=== PATIENT | female | born 1970 | race Caucasian/White ===

== ENCOUNTER 2025-01-14 13:14 | Outpatient (AMB) | payer BC, SELFPAY ==
--- NOTE | 2025-01-14 13:15 | MHC.PC.OV ---
Vital Signs 01/14/25 13:16 01/14/25 14:02 Height 5 ft 0.63 in Weight 146 lb 2 oz BMI 27.9 BP 140/62 H 118/82 Blood Pressure Location Lt brachial Lt brachial Position Sitting Sitting Pulse 74 Pulse Source Pulse Oximeter Temp 97.1 F Temp Source Temporal Artery Scan Pulse Oximetry (%) 96 Oxygen Delivery Method Room Air Intake Visit Reasons: establish care Intake Note: Patient is a new patient here to establish care for Anxiety. Transferring care from Dr Perez . Medical records have not been requested and have not received. Cash Management Associate Required: No Investor Relations Coordinator: Not Required per policy Accompanied by: Self / Same As Patient Allergies acetaminophen [From Percocet] Allergy (Intermediate, Verified 01/14/25 13:33) Hives oxycodone [From Percocet] Allergy (Intermediate, Verified 01/14/25 13:33) Hives Penicillins Allergy (Intermediate, Verified 01/14/25 13:33) Hives Medication List - Last Reconciled 01/14/25 by Nika Sanders PA-C semaglutide (weight loss) 0.25 mg subcut QWEEK Tobacco use date assessed: 01/14/25 Dental Screening Dental Screen Date: 01/14/25 Did you have a dental visit in the last 12 months?: No Did you have a dental problem in the last 6 months where you did not have access to dental care?: No Was dental information given to patient?: Patient has dentist HPI establish care HPI Details 54 year old female coming to the office for the first time. Patient is not known to [facility]. The patient is a 54-year-old female presenting for wellness and preventive care evaluation. has not been seen in about 10 years and has not had an screening done. Reports vertigo episodes with severe dizziness and nausea, but currently well managed through a flipping maneuver has only had 2 episodes of this spinning sensation last episode was over 3 months ago. Current weight loss managed with semaglutide injections, showing significant results. She recently had blood work performed through her employer A1c of 5.5% than all other blood work within normal limits. 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 1. Little interest or pleasure in doing things: not at all 2. Feeling down, depressed, or hopeless: not at all 3. Trouble falling or staying asleep, or sleeping too much: not at all 4. Feeling tired or having little energy: not at all 5. Poor appetite or overeating: not at all 6. Feeling bad about yourself - or that you are a failure or have let yourself or your family down: not at all 7. Trouble concentrating on things, such as reading the newspaper or watching television: not at all 8. Moving or speaking so slowly that other people could have noticed. Or the opposite - being so fidgety or restless that you have been moving around a lot more than usual: not at all 9. Thoughts that you would be better off or of hurting yourself in some way: not at all Total score: 0 Depression Screening Interpretation: Negative Depression Screening Done: Yes Source: Developed by Drs. Saad Storm, Merary Villalpando, Ruben Curry and colleagues, with an educational ricci from [employer]. Thrive Questionnaire Date Thrive assessed: 01/14/25 I am a: Patient What is your living situation today?: I have a steady place to live Within the past 12 months, did the food you bought not last and you didn't have the money to get more?: Never true Within the past 12 months, did you worry whether your food would run out before you got money to buy more?: Never true Do you have trouble paying for medicines?: No Do you have trouble getting transportation to medical appointments?: No Do you have trouble paying your heating and electricity bill?: No Do you have trouble taking care of your child, family member or friend?: No Do you have trouble with day-to-day activities such as bathing, preparing meals, shopping, managing finances, etc.?: No Are you currently unemployed and looking for a job?: No Are you interested in more education?: No Please select the resources that you would like help with: None Currently or been in a relationship where the following occur: No concerns reported THRIVE Score: 0 AUDIT C Alcohol Use Questionnaire (AUDIT-C) 1. How often do you have a drink containing alcohol?: Never 3. How often do you have six or more drinks on one occasion?: Never Total Score: 0 JAYDEN-7 AMB Questionnaire JAYDEN-7 Date JAYDEN - 7 assessed: 01/14/25 Feeling nervous, anxious, or on edge: 1 = Several days Not being able to stop or control worryin = Not at all Worrying too much about different things: 1 = Several days Trouble relaxin = Several days Being so restless that it is hard to sit still: 1 = Several days Becoming easily annoyed or irritable: 1 = Several days Feeling afraid as if something awful might happen: 0 = Not at all Total JAYDEN-7 score (0-4 normal; 5-9 mild; 10-14 moderate; 15-21 severe): 5 Source: Developed by Drs. Saad Storm, Merary Villalpando, Ruben Curry and colleagues, with an educational ricci from [employer]. JAYDEN-7 Assessment Billing JAYDEN-7 Assessment Tool: JAYDEN-7 Assessment 37754 Review of Systems Const Denies body aches, Denies chills, Denies fever(s), Denies headache(s) and Denies poor appetite Eyes Reports no additional complaints ENT Denies dysphagia, Denies dizziness, Denies headache(s) and Denies odynophagia Card Denies chest pain, Denies syncope, Denies edema, Denies irregular heart rhythm, Denies lightheadedness and Denies dyspnea Resp Denies cough and Denies dyspnea GI Denies abdominal pain, Denies dysphagia, Denies dyspepsia, Denies heartburn, Denies nausea, Denies odynophagia and Denies vomiting Reports no additional complaints Musc Reports no additional complaints and Denies abnormal gait Skin/Breast Reports system reviewed and no additional complaints, except as documented Neuro Denies abnormal gait, Denies dizziness, Denies syncope and Denies headache(s) Psych Reports no additional complaints Physical exam (Primary Care) Vital Signs: Last Vital Signs Temp 97.1 F 01/14/25 13:16 Pulse 74 01/14/25 13:16 BP 118/82 01/14/25 14:02 Pulse Ox 96 01/14/25 13:16 Oxygen Delivery Method Room Air 01/14/25 13:16 BMI result Body Mass Index 27.9 Tobacco/Smoking Status: Tobacco use Status Tobacco use date assessed 01/14/25 01/14/25 13:27 Patient Tobacco Use Status Former Tobacco user 01/14/25 13:27 e-Cigarette/Vaping Use Never Used 01/14/25 13:27 PHQ-9: PHQ-9 Score PHQ-9: Total score 0 01/14/25 13:29 Depression Screening Interpretation: Negative Thrive Assessment: Date of Thrive Assessment Date Thrive assessed 01/14/25 01/14/25 13:27 Currently or been in a relationship where the following occur: No concerns reported Const General: cooperative, healthy appearing, comfortable and no acute distress Orientation/consciousness: patient oriented x3 HENMT Head: Yes normocephalic Ears: hearing grossly normal bilaterally General nose exam: Normal external nose present Eyes General: appearance normal, both eyes and all related structures Conjunctivae: conjunctivae normal Neck Neck: Yes full ROM and Yes no lymphadenopathy Resp Effort & Inspection: normal respiratory effort Auscultation: clear to auscultation bilaterally, no crackles, no rales, no rhonchi and no wheezes Cardio Rate: regular rate Rhythm: regular rhythm Skin General skin exam: no rashes or lesions noted Neuro General: patient oriented x3 Gait exam (Neuro): Normal gait present Extrem General: Yes normal to inspection, Yes full ROM and No edema Psych Affect: normal affect Attitude: cooperative Insight: Good insight present (Psych) Judgement: Good judgement present (Psych) Coding Level of Care Code New Pt Level 4 (37358) Diagnoses Screening for breast cancer Z12.39 Screening for colorectal cancer Z12.11; Z12.12 Anxiety F41.9 Obesity (BMI 30.0-34.9) E66.811 BPPV (benign paroxysmal positional vertigo) H81.10 Screening for hypercholesterolemia Z13.220 Additional Codes JAYDEN-7 Assessment Billing - JAYDEN-7 Assessment Tool: JAYDEN-7 Assessment 28310 ([id number]) Assessment & Plan Assessment & Plan (1) Screening for breast cancer: Code(s): Z12.39 - Encounter for other screening for malignant neoplasm of breast Category: Medical Plan: Referral placed to mammogram today (2) Screening for colorectal cancer: Code(s): Z12.11 - Encounter for screening for malignant neoplasm of colon; Z12.12 - Encounter for screening for malignant neoplasm of rectum Category: Medical Plan: Referral placed for Cologuard box. I explained the different procedures at length with the patient and she decided to go with Cologuard testing. (3) Anxiety: Code(s): F41.9 - Anxiety disorder, unspecified Category: Medical Plan: Jayden 7 screening tool positive today patient denies any feelings of anxiety or depression that needs treatment at this time. (4) Obesity (BMI 30.0-34.9): Code(s): E66.811 - Obesity, class 1 Category: Medical Plan: Continued success in weight control with semaglutide is noted, and physical activity is encouraged to maintain fitness levels. Diet modification is advised to address hyperlipidemia, with emphasis on reducing high-cholesterol foods. (5) BPPV (benign paroxysmal positional vertigo): Code(s): H81.10 - Benign paroxysmal vertigo, unspecified ear Category: Medical Plan: The patient's vertigo episodes can be managed with a recommended medication and maneuvers at home; further intervention such as physical therapy may be considered if episodes increase. (6) Screening for hypercholesterolemia: Code(s): Z13.220 - Encounter for screening for lipoid disorders Category: Medical Plan: Last blood work performed 09/2024 LDL 120, HDL 48, triglycerides 47 Plan Screening for breast, cervical, and colorectal cancers is planned, and follow-up with a cloud subject matter expert is advised. While current blood pressure readings are elevated, they're suspected to be influenced by caffeine, warranting monitoring and potential dietary adjustments. Patient was informed and verbally consented to the use of an ambient scribe for clinic note documentation during this visit. This note was constructed using voice recognition software. While every effort has been made to ensure accuracy and tunnel elastic operator lockstitch, still areas may have been included sometimes these areas may affect the content or meeting of the given symptoms. Total time spent caring for the patient today was thirty minutes. This includes time spent before the visit reviewing the chart, time spent during the visit, and time spent after the visit and documentation. Orders: Orders TSH reflex Free T4 Today Z00.00 - Encounter for general adult medical examination without abnormal findings Vitamin B12 and Folate Today Z00.00 - Encounter for general adult medical examination without abnormal findings Vitamin D 25-OH Total Today Z00.00 - Encounter for general adult medical examination without abnormal findings MM tomosynthesis screening BI Today Z12.31 - Encounter for screening mammogram for malignant neoplasm of breast Referrals Cologuard Test Z12.11 - Encounter for screening for malignant neoplasm of colon, Z12.12 - Encounter for screening for malignant neoplasm of rectum Medications: New meclizine 12.5 mg PO TID PRN 10 tabs 0RF dizziness
[2025-01-14 13:16] VITALS: BP 140/62; PULSE 74; TEMP 36.2; O2SAT 96; BMI 27.9
--- OUTSIDE RECORDS SUMMARY | 2025-01-14 13:33 | XMS_ITS | Clinical Summary ---
Author Organization Formerly [facility] Address [address] [place] [address] Care Team Providers Care Teacher Aide Name Role Phone Pcp, No Primary Care Provider Unavailabl e Social History Tobacco Use Types Packs/Day Years Used Date Smoking Tobacco: Never Assessed Sex and Gender Information Value Date Recorded Sex Assigned at Not on file Gender Identity Not on file Sexual Orientation Not on file Plan of Treatment Health Maintenance Due Date Last Done Comments Hepatitis C Virus Screening 1972 HIV Screening 1985 DTaP/Tdap/Td Vaccines (1 - Tdap) 1991 Hepatitis B Vaccines (1 of 3 - 19+ 3-dose series) 1991 Pap Smear (Ages 21-65) 1993 Mammogram 2012 Colonoscopy 2017 Pneumococcal Vaccines 50+ (1 of 1 - PCV) 2022 Zoster (Shingles) Vaccine (1 of 2) 2022 Influenza Vaccine 06/26/2024 COVID-19 Vaccine (1 - 2023-2 5 season) 2024 Pneumococcal Vaccine: Pediat elizabeth (0-5 Years) and At-Risk Patients (6 to 49 Years) Aged Out No longer eligible b ased on patient's age to complete this topic Care Teams Teacher Aide Relationship Specialty Start Date End Date Pcp, No PCP - General General Medicine 12/14/22
--- OUTSIDE RECORDS SUMMARY | 2025-01-14 13:33 | XMS_ITS | Clinical Summary ---
Author Organization [facility] Address [address] [place] [address] Care Team Providers Care Technical Publications Writer Name Role Phone Michael San MD Primary Care Provider [phone] Surgical History Surgery Date Site/Laterality Comments TUBAL LIGATION 2003 PROCEDURE: HISTORICAL TUBAL LIGATION; COMMENT: laparoscopic, at time of cholescystectomy CHOLECYSTECTOMY 2003 PROCEDURE: NV CHOLECYSTECTOMY; COMMENT: inflamed ROTATOR CUFF REPAIR 07/05 PROCEDURE: HISTORICAL ROTATOR CUFF REPAIR; COMMENT: in [place], [place]; right shoulder OTHER SURGICAL HISTORY 08/23/2011 PROCEDURE: NV DILATION & CURETTAGE DX&/THER NONOBSTETRIC; COMMENT: Hysteroscopy, D&C with thermal balloon endometrial ablation performed by Dr. Hernandez Medical History Medical History Date Comments Kidney infection DX:Kidney infec tion Family History Medical History Relation Name Comments Diabetes Father Hypertension Sister 1 Relation Name Status Comments Daughter Alive Father Alive Maternal Grandfather Maternal Grandmother Mother Alive Paternal Grandfather Paternal Grandmother Sister 1 Sister 2 Alive Sister 3 Alive Sister 4 Alive Son Alive Social History Tobacco Use Types Packs/Day Years Used Date Smoking Tobacco: Every Day Cigarettes Smokeless Tobacco: Never Alcohol Use Standard Drinks/Week Comments Yes 0 (1 standard drink = 0.6 oz pur e alcohol) Comments Unknown Sex and Gender Information Value Date Recorded Sex Assigned at Not on file Legal Sex Female 9:47 AM EST Gender Identity Not on file Sexual Orientation Not on file Obstetrics History Plan of Treatment Health Maintenance Due Date Last Done Comments Breast Cancer Screening 1972 DTaP,Tdap,and Td Vaccines (1 - Tdap) 1991 Hepatitis B Vaccines (1 of 3 - 19+ 3-dose series) 1991 Pneumococcal Vaccine: 50+ Ye ars (1 of 2 - PCV) 1991 Pneumococcal Vaccine: Pediat rics (0 to 5 Years) and At-Risk Patients (6 to 64 Years) (1 of 2 - PCV) 1991 Cervical Cancer Screening: P ap Smear 1993 Zoster Vaccines (1 of 2) 2022 Colorectal Cancer Screening: Colonoscopy 10/29/2022 Depression Screening 10/29/2022 HIV Screening 10/29/2022 Hepatitis C Screening 10/29/2022 Social Influencers of Health Screening 10/29/2022 COVID-19 Vaccine (1 - 2023-2 5 season) 2024 Influenza Vaccine (#1) 2024 HIB Vaccines Aged Out No longer eligi ble based on patient's age to complete this topic HPV Vaccines Aged Out No longer eligi ble based on patient's age to complete this topic Hepatitis A Vaccines Aged Out No long er eligible based on patient's age to complete this topic IPV Vaccines Aged Out No longer eligi ble based on patient's age to complete this topic MMR Vaccines Aged Out No longer eligi ble based on patient's age to complete this topic Meningococcal ACWY Vaccine Aged Out N o longer eligible based on patient's age to complete this topic Meningococcal B Vacine Aged Out No lo nger eligible based on patient's age to complete this topic RSV Immunization Patients Un guillaume 20 months Aged Out No longer eligible b ased on patient's age to complete this topic Varicella Vaccines Aged Out No longer eligible based on patient's age to complete this topic Care Teams Technical Publications Writer Relationship Specialty Start Date End Date Michael San MD [address] [facility] RONALD Munoz PCP - General 02/21/10
--- OUTSIDE RECORDS SUMMARY | 2025-01-14 13:33 | XMS_ITS | Clinical Summary ---
Author Organization Formerly [facility] Address [address] [place] [address] Care Team Providers Care Heating And Cooling Systems Engineer Name Role Phone Unavailable Primary Care Provider Unavailabl e Social History Tobacco Use Types Packs/Day Years Used Date Smoking Tobacco: Never Assessed Sex and Gender Information Value Date Recorded Sex Assigned at Female 08/16/2022 3:48 PM EDT Gender Identity Not on file Sexual Orientation Not on file Job Start Date Occupation Industry Not on file Not on file Not on file Plan of Treatment Health Maintenance Due Date Last Done Comments Hepatitis B Vaccines (1 of 3 - 3-dose series) 1972 Hepatitis C Screening 1972 COVID-19 Vaccine (#1) 1972 Depression Screening 1984 Preventative Health Evaluation 1990 DTap / Tdap / Td (1 - Tdap) 1991 Cervical Cancer Screening (P ap Smear) 1993 Colon Cancer Screening (Colonoscopy) 2017 Breast Cancer Screening (Mammogram) 2022 Shingrix-Zoster Vaccine (1 of 2) 2022 Influenza Vaccine (#1) 2024 Pneumococcal Vaccine Aged Out No long er eligible based on patient's age to complete this topic RSV Ped < 20 months Aged Out No longe r eligible based on patient's age to complete this topic [facility] [employer] Other 05/21/1980 [employer] [address] [place] [address] Luz Jones Personal/Family Self [address] [place] [id number] [employer] Corporate Other 05/21/1980 [employer]BIKA KIMBROUGH [address]
--- OUTSIDE RECORDS SUMMARY | 2025-01-14 13:33 | XMS_ITS | Data Portability ---
Author Organization [facility]ensen [facility], [address] Address [address] [place] [address] Assessment No assessment recorded. Plan of Treatment Reminders Order Date Submit Date Provider Last Modified By Organization Details Last Modified Time Details Appointments None recorded. Lab None recorded. Referral orthopedic surgeon referral - closed fracture right foot 5th metatarsal bone. Need further evaluation and treatment. 2022 023 acardinal 3 [facility], [address], [place], [address], 08:46:14 Procedures None recorded. Surgeries None recorded. Imaging XR, foot, 3 or more view 2022 023 [facility], [address] [place], [address], 09:27:29 Medication Orders ibuprofen 800 mg tablet 2022 023 [facility]/Pharmacy #[id number], [address] [place], [address], 08:43:09 Patient TargetsNo targets recorded. Patient Instructions Encounter Date Encounter Id Patient Instructions Last Modified By Organization Details Last Modified Time 04/23/2023 [id number] foot pain: care instructions [email or web address] Not available 04/23/2023 08:42:55 Overview Foot injuries that cause pain and swelling are fairly common. Almost all sports or home repair projects can cause a misstep that ends up as foot pain. Normal wear and tear, especially as you get older, also can cause foot pain. Most minor foot injuries will heal on their own, and home treatment is usually all you need to do. If you have a severe injury, you may need tests and treatment. Follow-up care is a martinez part of your treatment and safety. Be sure to make and go to all appointments, and call your doctor or nurse advice line (239 in most provinces and territories) if you are having problems. It's also a good idea to know your test results and keep a list of the medicines you take. How can you care for yourself at home? Take pain medicines exactly as directed. If the doctor gave you a prescription medicine for pain, take it as prescribed. If you are not taking a prescription pain medicine, ask your doctor if you can take an oayc-xsb-enukghr medicine. Rest and protect your foot. Take a break from any activity that may cause pain. Put ice or a cold pack on your foot for 10 to 20 minutes at a time. Put a thin cloth between the ice and your skin. Prop up the sore foot on a pillow when you ice it or anytime you sit or lie down during the next 3 days. Try to keep it above the level of your heart. This will help reduce swelling. Your doctor may recommend that you wrap your foot with an elastic bandage. Keep your foot wrapped for as long as your doctor advises. If your doctor recommends crutches, use them as directed. Wear roomy footwear. As soon as pain and swelling end, begin gentle exercises of your foot. Your doctor can tell you which exercises will help. When should you call for help? Call 911 anytime you think you may need emergency care. For example, call if: Your foot turns pale, white, blue, or cold. Call your doctor or nurse advice line now or seek immediate medical care if: You cannot move or stand on your foot. Your foot looks twisted or out of its normal position. Your foot is not stable when you step down. You have signs of infection, such as: Increased pain, swelling, warmth, or redness. Red streaks leading from the sore area. Pus draining from a place on your foot. A fever. Your foot is numb or tingly. Watch closely for changes in your health, and be sure to contact your doctor or nurse advice line if: You do not get better as expected. You have bruises from an injury that last longer than 2 weeks. [email or web address] Not available 04/23/2023 08:29:02 Reason for Referral Orthopedic Surgeon Referral for Closed fracture of fifth metatarsal bone of right foot closed fracture right foot 5th metatarsal bone. Need further evaluation and treatment. closed fracture right foot 5th metatarsal bone. Need further evaluation and treatment. Referring Physician: Rodney Gray, Urgent Care, Encounter Date: 04/23/2023 Results Created Date Observation Date Name Description Value Unit Range Abnormal Flag Note LastModifiedBy Organization Detail LastModifiedTime 04/23/20 23 04/23/2023 XR, foot, 3 or more view No observ ation record ed. [email or web address] [facility] [address] [place], [address], 04/23/2023 10:34:04 Result Notes None recorded. Problems Name Problem SNOMED Code Status Onset Date Resolution Date Notes Provider Name and Address Organization Details Recorded Time Endometri al ablation Completed 202204/23/2023 Removal Reason: was for bad menstrual cramps DEPINTO null, PA - [facility] 08:16:05 Problem Notes None recorded. Procedures Surgical History Date Name Laterality Status Provider Name and Address Organization Details Recorded Time 04/23/20 03 ligation of fallopian tube completed DEPINTO PA - [facility] 04/23/2023 08:14:48 04/23/20 03 cholecystectomy completed DEPINTO PA - [facility] 04/23/2023 08:14:58 Imaging Results Imaging Date Name Status LastModified by Organiz ation Details LastModified Time 04/23/2023 XR, foot, 3 or more view completed [email or web address] [facility] [address] [place], [address], 04/23/2023 10:34:04 Procedure Notes None recorded. Medical Equipment None Reported. Allergies Allergen ID Allergen Name Allergen Category Reaction Reaction Severity Criticality Documentation Date Start Date Code Code System Note Provider Name and Address Organization Details Recorded Time 651728 acetamino phen / oxycodone medicatio n hives Not available Not available 04/23/2023 89040 3 RxNorm DEPINTO null, PA - [facility] 3 08:13:20 136812 Product containin g penicilli n (product) medicatio n hives swelling Not available Not available Not available 04/23/2023 34127 8001 SNOMED Any cilli ns LISA KAPLANJinny gabriela PA - [facility] 3 08:13:37 Medications Name Sig Start Date Stop Date Status Note LastModified by Organization Details LastModified Time ibuprofen 800 mg tablet Take 1 tablet 3 times a day by oral route with meals for 10 days. 023 active Not Available Not Available Not Avai lable Vitals Date Recorded Body height Body mass index (BMI) Body weight Respiratory rate Pain severity - 0-10 verbal numeric rating [Score] - Reported Oxygen saturation Oxygen saturation in Arterial blood by Pulse oximetry Heart rate Body temperature Systolic blood pressure Diastolic blood pressure Provider Name and Address Organization Details Last Updated DateTime 3 152.4 cm 28.5 kg/m2 75460.4 9 g 18 /min 5 98 % 98 % 72 /min 98.2 [degF] 117 mm[Hg] 84 mm[Hg] LISA CHAUDHARI PA - [facility] 3 08:16:56 Social History Question Answer Notes LastModified by Organizat ion Details LastModified Time Tobacco Smoking Status Never Smoker LISA ochoa PA - [facility] 04/23/2023 08:14:12 What Is Your Level Of Alcohol Consumption? None Information not available 04/23/2023 Do You Use Any Illicit Or Recreational Drugs? No Information not available 04/23/2023 Have You Recently Traveled Abroad? No Information not available 04/23/2023 Do You Or Have You Ever Used Any Other Forms Of Tobacco Or Nicotine? No Information not available 04/23/2023 Sex: Unknown Functional Status None recorded. Mental Status None recorded. Family History Relationship Description Onset Age of this Age Resolved Age Notes LastModified by Organization Details LastModified Time Father Diabetes mellitus Not available 2022 08:14:22 Sister Diabetes mellitus Not available 2022 08:14:22 Medical History No medical history recorded. Gynecological History Statement/Question Response Date of LMP Is there any chance of ? No LMP Definite Obstetrics History GPAL:G 0 P 0 0 0 0 Past Encounters Encounter ID Performer Location Encounter Start Date Encounter Closed Date Diagnosis/Indication Diagnosis SNOMED-CT Code Diagnosis ICD10 Code Diagnosis Note [id number] [place] [address] [place] [address] 04/23/2023 08:05:29 04/23/2023 08:46:14 Pain in right foot [id number] 79455 M79.671 Closed fra cture of fifth metatarsal bone of right foot [id number] 9178599 S92.351A Health Concerns Section Related Observation LastModified by Organization Detai ls LastModified Time None Recorded Concern Status LastModified by Organization Details LastModified Time None Recorded Advance Directives Directive None Recorded Payers Encounter Date Sequence Insurance Name Policy Number Policy Dotson Covered Member ID Dotson Member ID Guarantor Name 04/23/2023 1 [facility] [id number] Luz Crowe [id number] Luz Crowe Notes Date Note Type Note Provider Name and Address Organization Details Recorded Time 3 text/html Foot/Ankle UCReported bypatient.source of patient informationInformation obtained from patient; Patient arrived at Urgent Care ambulatory; learning styles: auditory Location:right; foot Probleminjury; swelling Severity:moderate Duration:1 days Context:fall Associated Symptoms:no weakness; no numbness; no tingling;swelling;redness;w armth;ecchymosis Aggravating factors:going from sit to stand; standing; walking; upstairs Alleviating factors:elevation; limited weight bearing; rest Previous InjuryNo prior injury to affected body part Previous Treatmentnone Prior Imaging:none Rodney Gray NP [address] [place], [address], [place] - [facility] 04/23/2023 08:43:57 OBGyn Episode No OBEpisode recorded.
[2025-01-14 14:02] VITALS: BP 118/82
== END 2025-01-14 14:06 | disposition home or self-care (01) ==
DX: F41.9 Anxiety disorder, unspecified (principal); Z68.27 Body mass index [BMI] 27.0-27.9, adult; E66.811 Obesity, class 1; Z12.39 Encounter for other screening for malignant neoplasm of breast; H81.10 Benign paroxysmal vertigo, unspecified ear; Z12.11 Encounter for screening for malignant neoplasm of colon; Z12.12 Encounter for screening for malignant neoplasm of rectum; Z13.220 Encounter for screening for lipoid disorders

== ENCOUNTER 2025-01-14 13:14 | Outpatient (REF) | payer BC, SELFPAY ==
--- OUTSIDE RECORDS SUMMARY | 2025-01-14 14:21 | XMS_ITS | Clinical Summary ---
Author Organization [facility] Address [address] [place] [address] Care Team Providers Care Cub Reporter Name Role Phone Michael San MD Primary Care Provider [phone] Surgical History Surgery Date Site/Laterality Comments TUBAL LIGATION 2003 PROCEDURE: HISTORICAL TUBAL LIGATION; COMMENT: laparoscopic, at time of cholescystectomy CHOLECYSTECTOMY 2003 PROCEDURE: [place] CHOLECYSTECTOMY; COMMENT: inflamed ROTATOR CUFF REPAIR 07/05 PROCEDURE: HISTORICAL ROTATOR CUFF REPAIR; COMMENT: in [place], [place]; right shoulder OTHER SURGICAL HISTORY 08/23/2011 PROCEDURE: [place] DILATION & CURETTAGE DX&/THER NONOBSTETRIC; COMMENT: Hysteroscopy, [...] age to complete this topic Care Teams Cub Reporter Relationship Specialty Start Date End Date Michael San MD [address] [facility] RONALD Munoz PCP - General 02/21/10
--- OUTSIDE RECORDS SUMMARY | 2025-01-14 14:21 | XMS_ITS | Clinical Summary ---
Author Organization [facility] Address [address] [place] [address] Care Team Providers Care Cold Working Inspector Name Role Phone Unavailable Primary Care Provider [...] to complete this topic [facility] Corporate Other 05/21/1980 ATNapoleon KIMBROUGH [address] [place] [address] Luz Jones Personal/Family Self [address] [place] [id number] [facility] Corporate Other 05/21/1980 AMBIKA KIMBROUGH [address]
--- OUTSIDE RECORDS SUMMARY | 2025-01-14 14:21 | XMS_ITS | Clinical Summary ---
Author Organization [facility] Address [address] [place] [address] Care Team Providers Care Medicaid Collection Specialist Name Role Phone Pcp, No Primary Care [...] age to complete this topic Care Teams Medicaid Collection Specialist Relationship Specialty Start Date End Date Pcp, No PCP - General General Medicine 12/14/22
[2025-01-14 16:09] LABS: TSH reflex Free T4 0.98 uIU/mL (0.32-4.0); Vitamin D 25-OH Total 25.7 ng/mL (>30)
[2025-01-14 16:25] LABS: Folate 11.2 ng/mL (> or = 4.0); Vitamin B12 497 pg/mL (200-900)
== END 2025-01-14 13:15 | disposition home or self-care (01) ==
LOC: HO.LAB 13:14
DX: Z00.00 Encounter for general adult medical examination without abnormal findings (principal); F41.9 Anxiety disorder, unspecified; E66.811 Obesity, class 1; Z68.27 Body mass index [BMI] 27.0-27.9, adult; H81.10 Benign paroxysmal vertigo, unspecified ear
CPT/HCPCS: 36415; 82306; 82607; 82746; 84443; 96127

== ENCOUNTER 2025-02-26 14:28 | Outpatient (REF) | payer BC, SELFPAY ==
--- OUTSIDE RECORDS SUMMARY | 2025-02-26 15:58 | XMS_ITS | Clinical Summary ---
Author Organization [facility] Address [address] [place] [address] Care Team Providers Care Roll Former Name Role Phone Pcp, No Primary Care [...] age to complete this topic Care Teams Roll Former Relationship Specialty Start Date End Date Pcp, No PCP - General General Medicine 12/14/22
--- OUTSIDE RECORDS SUMMARY | 2025-02-26 15:58 | XMS_ITS | Data Portability ---
Author Organization [facility]A Christensen [facility], [address] Address [address] [place] [address] Assessment No assessment recorded. Plan of Treatment Reminders Order Date Submit Date Provider Last Modified By Organization Details Last Modified Time Details Appointments None recorded. Lab None recorded. Referral orthopedic surgeon referral - closed fracture right foot 5th metatarsal bone. Need further evaluation and treatment. 2022 023 acardinal 3 [facility], [address], [place], [address], 08:46:14 Procedures None recorded. Surgeries None recorded. Imaging XR, foot, 3 or more view 2022 023 [facility], [address] [place], [address], 09:27:29 Medication Orders ibuprofen 800 mg tablet 2022 023 [facility]/Ph[facility]acy #[id number], [address] [place], [address], 08:43:09 Patient TargetsNo targets recorded. Patient Instructions Encounter Date Encounter Id Patient Instructions Last Modified By Organization Details Last Modified Time 04/23/2023 [id number] foot pain: care instructions [email or web address] Not available [...] call your doctor or nurse advice line (639 in most provinces and territories) if you [...] your doctor if you can take an tfai-fsy-tkgxhbv medicine. Rest and protect your foot. Take [...] ed. [email or web address] [facility] [address] [place], [address], 04/23/2023 10:34:04 Result Notes None recorded. Problems [...] completed [email or web address] [facility] [address] [place], [address], 04/23/2023 10:34:04 Procedure Notes None recorded. Medical Equipment None Reported. Allergies Allergen ID Allergen Name Allergen Category Reaction Reaction Severity Criticality Documentation Date Start Date Code Code System Note Provider Name and Address Organization Details Recorded Time 836982 acetamino phen / oxycodone medicatio n hives Not available Not available 04/23/2023 34043 3 RxNorm DEPINTO null, PA - [facility] 3 08:13:20 411094 Product containin g penicilli n (product) medicatio n hives swelling Not available Not available Not available 04/23/2023 07880 8001 SNOMED Any cilli ns LISA KAPLANJinny [...] Updated DateTime 3 152.4 cm 28.5 kg/m2 43184.4 9 g 18 /min 5 98 % [...] SNOMED-CT Code Diagnosis ICD10 Code Diagnosis Note [id number] [place] [address] [place] [address] 04/23/2023 08:05:29 04/23/2023 08:46:14 Pain in right foot [id number] 20400 M79.671 Closed fra cture of fifth metatarsal bone of right foot [id number] 6496010 S92.351A Health Concerns Section Related Observation LastModified by Organization Detai ls LastModified Time None Recorded Concern Status LastModified by Organization Details LastModified Time None Recorded Advance Directives Directive None Recorded Payers Encounter Date Sequence Insurance Name Policy Number Policy Dotson Covered Member ID Dotson Member ID Guarantor Name 04/23/2023 1 [facility] [id number] Luz Crowe [id number] Luz Crowe Notes Date Note Type [...] Gray NP [address] [place], [address], [place] - [facility] 04/23/2023 08:43:57 OBGyn Episode No OBEpisode recorded.
--- OUTSIDE RECORDS SUMMARY | 2025-02-26 15:58 | XMS_ITS | Clinical Summary ---
Author Organization [facility] Address [address] [place] [address] Care Team Providers Care Nursery Manager Name Role Phone Unavailable Primary Care Provider [...] to complete this topic [facility] Corporate Other 05/21/1980 ATNapoleon KIMBROUGH [address] [place] [address] Luz Jones Personal/Family Self [address] [place] [phone] [facility] Corporate Other 05/21/1980 AMBIKA KIMBROUGH [address]
--- OUTSIDE RECORDS SUMMARY | 2025-02-26 15:58 | XMS_ITS ---
Author Name [facility] Organization Unknown Care Team Organization Name Specialty Phone Email Start Date End Da [facility] NO PCP Primary Care 12/18/2022 12/18/2022
--- OUTSIDE RECORDS SUMMARY | 2025-02-26 15:58 | XMS_ITS | Clinical Summary ---
Author Organization [facility] Address [address] [place] [address] Care Team Providers Care Carpenter Assistant Installer Name Role Phone Michael San MD Primary Care Provider [phone] Surgical History Surgery Date Site/Laterality Comments TUBAL LIGATION 2003 PROCEDURE: HISTORICAL TUBAL LIGATION; COMMENT: laparoscopic, at time of cholescystectomy CHOLECYSTECTOMY 2003 PROCEDURE: [place] CHOLECYSTECTOMY; COMMENT: inflamed ROTATOR CUFF REPAIR 07/05 PROCEDURE: HISTORICAL ROTATOR CUFF REPAIR; COMMENT: in [place], [place]; right shoulder OTHER SURGICAL HISTORY 08/23/2011 PROCEDURE: [place] DILATION & CURETTAGE DX&/THER NONOBSTETRIC; COMMENT: Hysteroscopy, [...] age to complete this topic Care Teams Carpenter Assistant Installer Relationship Specialty Start Date End Date Michael San MD [address] [facility] RONALD Munoz PCP - General 02/21/10
== END 2025-02-26 14:29 | disposition home or self-care (01) ==
LOC: HO.MAMMO 14:28
DX: Z12.31 Encounter for screening mammogram for malignant neoplasm of breast (principal)
CPT/HCPCS: 77063; 77067

== ENCOUNTER → 2025-02-26 14:30 | Outpatient (BNV) | payer BC, SELFPAY | PROVIDERS: Visit Provider Internal Medicine | DX: Z12.31 Encounter for screening mammogram for malignant neoplasm of breast (principal) | CPT/HCPCS: 77063; 77067 ==

== ENCOUNTER 2025-04-08 13:55 | Outpatient (REF) | payer BC, SELFPAY ==
--- NOTE | ~2025-04-08 | MM_ITS ---
EXAMINATION: MM DIAGNOSTIC DIGITAL BREAST TOMOSYNTHESIS, BILATERAL Bilateral Limited ultrasound. CLINICAL INFORMATION: Call back from screening for bilateral asymmetries. COMPARISON: Mammography: Comparison is made with relevant prior exams. TECHNIQUE: Digital breast mammography with tomosynthesis is performed in both the craniocaudal and mediolateral oblique views along with computer-aided detection (CAD). FINDINGS: There are scattered areas of fibroglandular density (ACR BI-RADS breast composition Category b). Right: There is a normal-appearing intramammary lymph node in the upper outer breast otherwise no suspicious masses calcifications or other abnormal findings. Targeted color Doppler ultrasound scanning in the upper outer quadrant of the right breast demonstrates normal fibronodular breast tissue. There is no sonographic abnormality. Left: Circumscribed oval mass in the lateral left breast anterior depth on CC view persists on additional imaging projections. No suspicious calcifications or other abnormal findings. Targeted color Doppler ultrasound demonstrates a simple to minimally complicated cyst at 1:00 2 cm from the nipple measuring 6 x 4 x 5 mm which correlates with the oval mass on mammography. There is a simple to minimally complicated cyst at 2:00 2 cm from nipple measuring 5 x 5 x 4 mm. There is no sonographic abnormality. Results are provided to the patient at time of visit by the technologist. MM/MM tomosynthesis added view BI IMPRESSION: Right: Benign. Left: Simple to minimally complicated cysts on ultrasound. Benign. ASSESSMENT: BI-RADS BI-RADS 2 - Benign Findings RECOMMENDATION: 1 year F/U This patient's information was entered into a reminder system with a target due date for their next mammogram. Electronically signed by: Verna Joiner DO 04/09/2025 08:36 AM EDT
--- OUTSIDE RECORDS SUMMARY | 2025-04-08 13:57 | XMS_ITS | Clinical Summary ---
Author Organization [facility] Address [address] [place] [address] Care Team Providers Care Casing Blower Name Role Phone Unavailable Primary Care Provider [...] to complete this topic [facility] Corporate Other 05/21/1980 ATNapoleon KIMBROUGH [address] [place] [address] Luz Jones Personal/Family Self [address] [place] [phone] [facility] Corporate Other 05/21/1980 AMBIKA KIMBROUGH [address]
--- OUTSIDE RECORDS SUMMARY | 2025-04-08 13:57 | XMS_ITS | Clinical Summary ---
Author Organization [facility] Address [address] [place] [address] Care Team Providers Care Sheet Heater Name Role Phone Pcp, No Primary Care Provider Unavailabl e Social History Tobacco Use Types Packs/Day Years Used Date Smoking Tobacco: Never Assessed Comments Unknown Sex and Gender Information Value Date Recorded Sex Assigned at Not on file Legal Sex Female 10:32 AM EST Gender Identity Not on file Sexual Orientation Not on file Plan of Treatment Health Maintenance Due Date Last Done Comments Hepatitis C Virus Screening 1970 HIV Screening 1985 DTaP/Tdap/Td Vaccines (1 - Tdap) 1991 Hepatitis B Vaccines (1 of 3 - 19+ 3-dose series) 04/1991 Pap Smear (Ages 21-65) 1993 Mammogram 2012 Colonoscopy 2017 Pneumococcal Vaccines 50+ (1 of 1 - PCV) 2022 Zoster (Shingles) Vaccine (1 of 2) 2022 COVID-19 Vaccine (1 - 2023-25 season) 2024 Influenza Vaccine 06/26/2025 Insurance BLUE CROSS OUT OF STATE - PPO [facility] [employer] Care Teams Sheet Heater Relationship Specialty Start Date End Date Pcp, No PCP - General General Medicine 12/14/22
--- OUTSIDE RECORDS SUMMARY | 2025-04-08 13:57 | XMS_ITS | Data Portability ---
Author Organization [facility] Christensen [facility], [address] Address [address] [place] [address] Assessment No assessment recorded. Plan of Treatment Reminders Order Date Submit Date Provider Last Modified By Organization Details Last Modified Time Details Appointments None recorded. Lab None recorded. Referral orthopedic surgeon referral - closed fracture right foot 5th metatarsal bone. Need further evaluation and treatment. 2022 023 acardinal 3 [facility], [address], [place], [address], 08:46:14 Procedures None recorded. Surgeries None recorded. Imaging XR, foot, 3 or more view 2022 023 [facility], [address] [place], [address], 09:27:29 Medication Orders ibuprofen 800 mg tablet 2022 023 [facility]/Ph[facility]acy #[id number], [address] [place], [address], 08:43:09 Patient TargetsNo targets recorded. Patient Instructions Encounter Date Encounter Id Patient Instructions Last Modified By Organization Details Last Modified Time 04/23/2023 [id number] foot pain: care instructions [email or web address] Not available [...] call your doctor or nurse advice line (429 in most provinces and territories) if you [...] your doctor if you can take an eqor-okv-isfnxfv medicine. Rest and protect your foot. Take [...] ed. [email or web address] [facility] [address] [place], [address], 04/23/2023 10:34:04 Result Notes None recorded. Problems [...] completed [email or web address] [facility] [address] [place], [address], 04/23/2023 10:34:04 Procedure Notes None recorded. Medical Equipment None Reported. Allergies Allergen ID Allergen Name Allergen Category Reaction Reaction Severity Criticality Documentation Date Start Date Code Code System Note Provider Name and Address Organization Details Recorded Time 080983 acetamino phen / oxycodone medicatio n hives Not available Not available 04/23/2023 92186 3 RxNorm DEPINTO null, PA - [facility] 3 08:13:20 322025 Product containin g penicilli n (product) medicatio n hives swelling Not available Not available Not available 04/23/2023 36624 8001 SNOMED Any cilli ns LISA KAPLANJinny [...] Updated DateTime 3 152.4 cm 28.5 kg/m2 18146.4 9 g 18 /min 5 98 % 98 % 72 /min 98.2 [degF] 117 mm[Hg] 84 mm[Hg] LISA CHAUDHARI PA - [facility] 3 08:16:56 Social History Question Answer Notes LastModified by Archevos Details LastModified Time Tobacco Smoking Status Never Smoker LISA ochoa PA - [facility] 04/23/2023 08:14:12 Have You Recently Traveled Abroad? No Information not available 04/23/2023 Sex: Unknown Functional Status Question Answer Note LastModified by Archevos Details LastModified Time Do you use any illicit or recreational drugs? No Information not available 04/23/2023 Do you or have you ever used any other forms of tobacco or nicotine? No Information not available 04/23/2023 What is your level of alcohol consumption? None Information not available 04/23/2023 Mental Status None recorded. Family History Relationship [...] SNOMED-CT Code Diagnosis ICD10 Code Diagnosis Note [id number] [place] [address] [place] [address] 04/23/2023 08:05:29 04/23/2023 08:46:14 Pain in right foot [id number] 93904 M79.671 Closed fra cture of fifth metatarsal bone of right foot [id number] 1551729 S92.351A Health Concerns Section Related Observation LastModified by Organization Detai ls LastModified Time None Recorded Concern Status LastModified by Organization Details LastModified Time None Recorded Advance Directives Directive None Recorded Payers Insurance Date Sequence Insurance Name Policy Number Policy Dotson Covered Member ID Dotson Member ID Guarantor Name 05/24/2023 1 [facility] [id number] Luz Crowe [id number] Luz Crowe 05/03/2023 1 [facility] [id number] Luz Crowe [id number] Luz Crowe Notes Date Note Type [...] Gray NP [address] [place], [address], [place] - [facility] 04/23/2023 08:43:57 OBGyn Episode No OBEpisode recorded.
== END 2025-04-08 13:56 | disposition home or self-care (01) ==
LOC: HO.MAMMO 13:55
DX: N64.89 Other specified disorders of breast (principal)
CPT/HCPCS: 76642; 77062; 77066

== ENCOUNTER → 2025-04-08 14:00 | Outpatient (BNV) | payer BC, SELFPAY | PROVIDERS: Visit Provider Internal Medicine | DX: N60.02 Solitary cyst of left breast (principal) | CPT/HCPCS: 76642; 77062; 77066 ==

== ENCOUNTER 2025-04-13 14:09 | Outpatient (AMB) | payer BC, SELFPAY ==
--- NOTE | 2025-04-13 14:15 | A.OFFPC_ITS ---
Vital Signs 04/13/25 14:16 Height 5 ft 0.63 in Weight 132 lb 6 oz BMI 25.3 BP 130/60 Blood Pressure Location Lt brachial Position Sitting Pulse 75 Pulse Source Pulse Oximeter Temp 97.3 F Temp Source Temporal Artery Scan Pulse Oximetry (%) 97 Oxygen Delivery Method Room Air Intake Visit Reasons: Annual Exam Intake Note: Patient is here today for a physical. Neon Sign Servicer Required: No Job Press Feeder: Not Required per policy Accompanied by: Self / Same As Patient Allergies acetaminophen [From Percocet] Allergy (Intermediate, Verified 04/13/25 14:20) Hives oxycodone [From Percocet] Allergy (Intermediate, Verified 04/13/25 14:20) Hives Penicillins Allergy (Intermediate, Verified 04/13/25 14:20) Hives Medication List - Last Reconciled 04/13/25 by Nika Sanders PA-C cholecalciferol (vitamin D3) 25 mcg PO DAILY meclizine 12.5 mg PO TID PRN semaglutide 0.75 mg subcut semaglutide (weight loss) 0.25 mg subcut QWEEK Tobacco use date assessed: 04/13/25 Dental Screening Dental Screen Date: 01/14/25 HPI Annual Exam HPI Details 54-year-old female with past medical his tory of obesity and anxiety last seen 12/2024 coming in for annual exam. Patient mentions a 26 lb weight loss since starting her Ozempic. She feels good on this medication and feels her overall mood and health has improved. She does express concerns about stress incontinence and has urine leakage with laughing, coughing, sneezing. 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 Cognitive needs: No Hearing needs: No Vision needs: Yes (Glasses) Questionnaire Thrive Questionnaire Date Thrive assessed: 01/12/25 I am a: Patient What is your living situation today?: I have a steady place to live Within the past 12 months, did the food you bought not last and you didn't have the money to get more?: Never true Within the past 12 months, did you worry whether your food would run out before you got money to buy more?: Never true Do you have trouble paying for medicines?: No Do you have trouble getting transportation to medical appointments?: No Do you have trouble paying your heating and electricity bill?: No Do you have trouble taking care of your child, family member or friend?: No Do you have trouble with day-to-day activities such as bathing, preparing meals, shopping, managing finances, etc.?: No Are you currently unemployed and looking for a job?: No Are you interested in more education?: No Please select the resources that you would like help with: None Currently or been in a relationship where the following occur: No concerns reported THRIVE Score: 0 JAYDEN-7 AMB Questionnaire JAYDEN-7 Date JAYDEN - 7 assessed: 01/14/25 Source: Developed by Drs. Saad Storm, Merary Villalpando, Ruben Curry and colleagues, with an educational ricci from [employer]. Review of Systems Const Denies body aches, Denies fatigue, Denies fever(s), Denies frequent falls, Denies headache(s) and Denies weakness Eyes Reports no additional complaints and Denies change in vision ENT Denies dizziness, Denies facial pain and Denies headache(s) Card Denies chest pain, Denies syncope, Denies irregular heart rhythm, Denies leg edema, Denies lightheadedness and Denies dyspnea Resp Denies cough and Denies dyspnea GI Denies abdominal pain, Denies constipation, Denies dyspepsia, Denies diarrhea, Denies nausea and Denies vomiting Details: urinary leakage consistent with stress incontinence Denies urinary frequency, Denies dysuria, Denies urinary hesitancy and Denies urinary urgency Musc Denies back pain and Denies myalgias Skin/Breast Reports system reviewed and no additional complaints, except as documented Neuro Denies dizziness, Denies syncope, Denies frequent falls, Denies headache(s) and Denies weakness Psych Reports no additional complaints Endo Denies fatigue Physical exam (Primary Care) Vital Signs: Last Vital Signs Temp 97.3 F 04/13/25 14:16 Pulse 75 04/13/25 14:16 BP 130/60 04/13/25 14:16 Pulse Ox 97 04/13/25 14:16 Oxygen Delivery Method Room Air 04/13/25 14:16 BMI result Body Mass Index 25.3 Tobacco/Smoking Status: Tobacco use Status Tobacco use date assessed 04/13/25 04/13/25 14:19 Patient Tobacco Use Status Former Tobacco user 04/13/25 14:19 e-Cigarette/Vaping Use Never Used 04/13/25 14:19 Thrive Assessment: Date of Thrive Assessment Date Thrive assessed 01/12/25 04/13/25 14:19 Currently or been in a relationship where the following occur: No concerns reported Const General: cooperative, healthy appearing, comfortable and no acute distress Orientation/consciousness: patient oriented x3 HENMT Head: Yes normocephalic Ears: hearing grossly normal bilaterally, external ears normal, TM's normal bilaterally and EAC's normal General nose exam: Normal external nose present Face and sinus: Yes normal facial exam and Yes sinuses nontender Mouth: Normal oral and palatal mucosa present and tongue normal Throat: Yes posterior oropharynx normal Eyes General: appearance normal, both eyes and all related structures Conjunctivae: conjunctivae normal Pupils: Equal, round and reactive pupils present EOM: EOMs intact bilaterally and No Nystagmus present Neck Neck: Yes normal visual inspection, Yes full ROM and Yes no lymphadenopathy Chest Chest palpation & inspection: normal inspection of the chest Resp Effort & Inspection: normal respiratory effort Auscultation: clear to auscultation bilaterally, no crackles, no rales, no rhonchi, no wheezes and breath sounds present Cardio Rate: regular rate Rhythm: regular rhythm Peripheral pulses: radial pulses present and dorsalis pedis present GI Inspection: Yes normal to inspection and No Abdominal wall edema Palpation (GI): Soft to palpation, not firm and nontender Auscultation: normal bowel sounds Rectal Exam - Female: deferred General: Yes no CVA tenderness Back/Spine/Pelvis Back: no CVA tenderness Skin General skin exam: no rashes or lesions noted Neuro General: patient oriented x3 Cranial nerves: Yes Equal, round and reactive pupils present, Yes Midline tongue present, Yes Ability to bilaterally elevate shoulders present and No Nystagmus present Gait exam (Neuro): Normal gait present Extrem General: Yes normal to inspection, Yes full ROM, No no pedal edema and No edema Psych Speech and movement: Normal speech and movement present Affect: normal affect Insight: Good insight present (Psych) Judgement: Good judgement present (Psych) Results AMB Urinalysis Dipstick UR Leukocytes Moderate Last Edit by Viviana Lr [place] on 04/13/25 15:21 UR Nitrite Negative Last Edit by Viviana Lr [facility] on 04/13/25 15:21 UR Urobilinogen Normal Last Edit by Viviana Lr [facility] on 04/13/25 15:21 UR Protein Trace Last Edit by Viviana Lr [facility] on 04/13/25 15:21 UR Ph 6.5 Last Edit by Viviana Lr [facility] on 04/13/25 15:21 UR Blood Negative Last Edit by Viviana Lr [facility] on 04/13/25 15:21 UR Specific [place] 1.020 Last Edit by Viviana Lr [facility] on 04/13/25 15: 21 UR Ketone Trace Last Edit by Viviana Lr [facility] on 04/13/25 15:21 UR Bilirubin Negative Last Edit by Viviana Lr [facility] on 04/13/25 15:21 UR Glucose Negative Last Edit by Viviana Lr [facility] on 04/13/25 15:21 Results Reviewed Results Reviewed: Laboratory Last Values Urine pH (Clinic) 6.5 04/13/25 15:10 Specific [place] (Clinic) 1.020 04/13/25 15:10 Ur Protein (Clinic) Trace 04/13/25 15:10 Ur Ketones (Clinic) Trace 04/13/25 15:10 Urine Blood (Clinic) Negative 04/13/25 15:10 Urine Nitrite Negative 04/13/25 15:10 Urine Bilirubin (Clinic) Negative 04/13/25 15:10 Urobilinogen (Clinic) Normal 04/13/25 15:10 Leukocyte Esterase (Clinic) Moderate A* 04/13/25 15:10 Urine Glucose (Clinic) Negative 04/13/25 15:10 Coding Level of Care Code Est Pt Prev Care 40-64y(17239) Diagnoses Annual physical exam Z00.00 Anxiety F41.9 Stress incontinence N39.3 Obesity (BMI 30.0-34.9) E66.811 BPPV (benign paroxysmal positional vertigo) H81.10 Screening for breast cancer Z12.39 Screening for colorectal cancer Z12.11; Z12.12 Urinary tract infection N39.0 Assessment & Plan Assessment & Plan (1) Annual physical exam: Code(s): Z00.00 - Encounter for general adult medical examination without abnormal findings Category: Medical Plan: Patient is up-to-date on all recommended routine screenings and vaccinations for her age. Blood work is up-to-date and was reviewed with the patient at last visit. Referral to Gynecology was placed at last visit as well for screening Pap smears. (2) Anxiety: Code(s): F41.9 - Anxiety disorder, unspecified Category: Medical Plan: Jayden 7 screening tool positive today patient denies any feelings of anxiety or depression that needs treatment at this time. (3) Stress incontinence: Code(s): N39.3 - Stress incontinence (female) (male) Category: Medical Plan: Patient having bouts of stress incontinence we discussed pelvic floor exercises patient agrees to try noninvasive exercise at home. Can consider referral to Urogynecology or pelvic floor specialists. Patient does have UTI in the urine plan to treat and monitor symptoms afterwards. (4) Obesity (BMI 30.0-34.9): Code(s): E66.811 - Obesity, class 1 Category: Medical Plan: Patient is currently on semaglutide 0.75 mg. Healthy diet and regular exercise is encouraged. (5) BPPV (benign paroxysmal positional vertigo): Code(s): H81.10 - Benign paroxysmal vertigo, unspecified ear Category: Medical Plan: The patient's vertigo episodes can be managed with a recommended medication and maneuvers at home; further intervention such as physical therapy may be considered if episodes increase. Patient has not had further episodes of BPPV. (6) Screening for breast cancer: Comment: Mammogram 03/2025 repeat in 1 year Code(s): Z12.39 - Encounter for other screening for malignant neoplasm of breast Category: Medical Plan: Mammogram was completed 04/19 (7) Screening for colorectal cancer: Comment: Negative Cologuard 01/2025 Code(s): Z12.11 - Encounter for screening for malignant neoplasm of colon; Z12.12 - Encounter for screening for malignant neoplasm of rectum Category: Medical Plan: Cologuard box completed 01/2025 repeat in 3 years (8) Urinary tract infection: Code(s): N39.0 - Urinary tract infection, site not specified Category: Medical Plan: Patient found to have urinary tract infection today. Plan to treat with 5 days of Macrobid and advised patient to continue to monitor her symptoms. Plan This note was constructed using voice recognition software. While every effort has been made to ensure accuracy and legal writing professor, still areas may have been included sometimes these areas may affect the content or meeting of the given symptoms. Total time spent caring for the patient today was 30 minutes. This includes time spent before the visit reviewing the chart, time spent during the visit, and time spent after the visit and documentation. Patient was informed and verbally consented to the use of an ambient scribe for clinic note documentation during this visit. Orders: Orders AMB Urinalysis Dipstick Today Z13.9 - Encounter for screening, unspecified Urine Culture Today N39.0 - Urinary tract infection, site not specified Medications: New nitrofurantoin monohyd/m-cryst 100 mg must administer with a meal/food 100 mg PO Q12H 5 days 10 caps 0RF
[2025-04-13 14:16] VITALS: BP 130/60; PULSE 75; TEMP 36.3; O2SAT 97; BMI 25.3
--- OUTSIDE RECORDS SUMMARY | 2025-04-13 14:16 | XMS_ITS | Data Portability ---
Author Organization [facility] Christensen s, [address] Address [address] [place] [address] Assessment No assessment recorded. Plan of Treatment Reminders Order Date Submit Date Provider Last Modified By Organization Details Last Modified Time Details Appointments None recorded. Lab None recorded. Referral orthopedic surgeon referral - closed fracture right foot 5th metatarsal bone. Need further evaluation and treatment. 2022 023 [facility], [address], [place], [address], 08:46:14 Procedures None recorded. Surgeries None recorded. Imaging XR, foot, 3 or more view 2022 023 [facility], [address] [place], [address], 09:27:29 Medication Orders ibuprofen 800 mg tablet 2022 023 [id number], [address] [place], [address], 08:43:09 Patient TargetsNo targets recorded. Patient Instructions Encounter Date Encounter Id Patient Instructions Last Modified By Organization Details Last Modified Time 04/23/2023 [id number] foot pain: care instructions [email or web address] Not available [...] call your doctor or nurse advice line (369 in most provinces and territories) if you [...] your doctor if you can take an vdul-fhh-cesnhyn medicine. Rest and protect your foot. Take [...] ed. [email or web address] [facility] [address] [place], [address], 04/23/2023 10:34:04 Result Notes None recorded. Problems [...] completed [email or web address] [facility] [address] [place], [address], 04/23/2023 10:34:04 Procedure Notes None recorded. Medical Equipment None Reported. Allergies Allergen ID Allergen Name Allergen Category Reaction Reaction Severity Criticality Documentation Date Start Date Code Code System Note Provider Name and Address Organization Details Recorded Time 697487 acetamino phen / oxycodone medicatio n hives Not available Not available 04/23/2023 75638 3 RxNorm DEPINTO null, [place] - [facility] 3 08:13:20 097559 Product containin g penicilli n (product) medicatio n hives swelling Not available Not available Not available 04/23/2023 32007 8001 SNOMED Any cilli ns LISA HOLTJOHN gabriela PA - [facility] 3 08:13:37 Medications Name Sig Start Date Stop Date Status Note LastModified by Organization Details LastModified Time ibuprofen 800 mg tablet Take 1 tablet 3 times a day by oral route with meals for 10 days. 023 active Not Available Not Available Not Avai lable Vitals Date Recorded Body height Body mass index (BMI) Body weight Respiratory rate Oxygen saturation Oxygen saturation in Arterial blood by Pulse oximetry Heart rate Body temperature Systolic blood pressure Diastolic blood pressure Provider Name and Address Organization Details Last Updated DateTime 3 152.4 cm 28.5 kg/m2 28229.4 9 g 18 /min 98 % 98 % 72 /min 98.2 [degF] 117 mm[Hg] 84 mm[Hg] LISA KAPLANJinny PA - [facility] 3 08:16:56 Social History Question Answer Notes LastModified by [employer] Details LastModified Time Tobacco Smoking Status Never Smoker LISA HOLTJOHN gabriela PA - [facility] 04/23/2023 08:14:12 Have You Recently Traveled Abroad? No Information not available 04/23/2023 Sex: Unknown Functional Status Question Answer Note LastModified by [employer] Details LastModified Time Do you use any [...] SNOMED-CT Code Diagnosis ICD10 Code Diagnosis Note [id number] [place] [address] [place] [address] 04/23/2023 08:05:29 04/23/2023 08:46:14 Pain in right foot 1424063490 86286 M79.671 Closed fra cture of fifth metatarsal bone of right foot [id number] S92.351A Health Concerns Section Related Observation LastModified by Organization Detai ls LastModified Time None Recorded Concern Status LastModified by Organization Details LastModified Time None Recorded Advance Directives Directive None Recorded Payers Insurance Date Sequence Insurance Name Policy Number Policy Dotson Covered Member ID Dotson Member ID Guarantor Name 05/24/2023 1 [facility] (O) [id number] Luz Crowe [id number] Luz Crowe 05/03/2023 1 [facility] [id number] Luz Crowe [id number] Luz Crowe Notes Date Note Type [...] Gray NP [address] [place], [address], PA - [facility] 04/23/2023 08:43:57 OBGyn Episode No OBEpisode recorded.
--- OUTSIDE RECORDS SUMMARY | 2025-04-13 14:16 | XMS_ITS | Clinical Summary ---
Author Organization [facility] Address [address] [place] [address] Care Team Providers Care Oracle Fusion Consultant Name Role Phone Unavailable Primary Care Provider [...] to complete this topic [facility] Corporate Other 05/21/1980 ATNapoleon KIMBROUGH [address] [place] [address] Luz Jones Personal/Family Self [address] [place] [id number] [facility] Corporate Other 05/21/1980 AMBIKA KIMBROUGH [address]
--- OUTSIDE RECORDS SUMMARY | 2025-04-13 14:16 | XMS_ITS | Clinical Summary ---
Author Organization [facility] Address [address] [place] [address] Care Team Providers Care Grounds And Nursery Specialist Name Role Phone Pcp, No Primary [...] BLUE CROSS OUT OF STATE - PPO [place] [facility] WORK[employer] Care Teams Grounds And Nursery Specialist Relationship Specialty Start Date End Date Pcp, No PCP - General General Medicine 12/14/22
--- OUTSIDE RECORDS SUMMARY | 2025-04-13 14:16 | XMS_ITS | Clinical Summary ---
Author Organization [facility] Address [address] [place] [address] Care Team Providers Care Icu Clerk Name Role Phone Michael San MD Primary Care Provider Surgical History Surgery Date Site/Laterality Comments TUBAL LIGATION 2003 PROCEDURE: HISTORICAL TUBAL LIGATION; COMMENT: laparoscopic, at time of cholescystectomy CHOLECYSTECTOMY 2003 PROCEDURE: AK CHOLECYSTECTOMY; COMMENT: inflamed ROTATOR CUFF REPAIR 07/05 PROCEDURE: HISTORICAL ROTATOR CUFF REPAIR; COMMENT: in [place], [place]; right shoulder OTHER SURGICAL HISTORY 08/23/2011 PROCEDURE: AK DILATION & CURETTAGE DX&/THER NONOBSTETRIC; COMMENT: Hysteroscopy, [...] Influencers of Health Screening 10/29/2022 COVID-19 Vaccine ( - 2023-2 5 season) 2024 Influenza Vaccine (Season Ended) 2025 HIB Vaccines Aged Out No longer eligi [...] age to complete this topic Meningococcal B Vaccine Aged Out No l onger eligible based on patient's age to complete this topic RSV Immunization Patients Un guillaume 20 months Aged Out No longer eligible b ased on patient's age to complete this topic Varicella Vaccines Aged Out No longer eligible based on patient's age to complete this topic Care Teams Icu Clerk Relationship Specialty Start Date End Date Michael San MD [address] [facility] RONALD Munoz PCP - General 02/21/10
== END 2025-04-13 15:18 | disposition home or self-care (01) ==
LOC: HO.HMCH 14:10
DX: Z00.00 Encounter for general adult medical examination without abnormal findings (principal); F41.9 Anxiety disorder, unspecified; Z68.25 Body mass index [BMI] 25.0-25.9, adult; E66.811 Obesity, class 1; N39.3 Stress incontinence (female) (male); Z12.39 Encounter for other screening for malignant neoplasm of breast; Z12.11 Encounter for screening for malignant neoplasm of colon; Z12.12 Encounter for screening for malignant neoplasm of rectum; N39.0 Urinary tract infection, site not specified; H81.10 Benign paroxysmal vertigo, unspecified ear

== ENCOUNTER 2025-04-13 14:09 | Outpatient (REF) | payer BC, SELFPAY | END 2025-04-13 14:10 | disposition home or self-care (01) | LOC: HO.LNP 14:09 | DX: N39.0 Urinary tract infection, site not specified (principal) | CPT/HCPCS: 81002; 87086 ==

== ENCOUNTER 2025-07-14 14:28 | Outpatient (AMB) | payer BC, SELFPAY ==
--- NOTE | 2025-07-14 14:33 | MHC.PC.OV ---
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: No Accompanied by: Self / Same As Patient Allergies acetaminophen (From Percocet) Allergy (Intermediate, Verified 07/14/25 14:44) Hives oxycodone (From Percocet) Allergy (Intermediate, Verified 07/14/25 14:44) Hives Penicillins Allergy (Intermediate, Verified 07/14/25 14:44) Hives Medication List - Last Reconciled 07/14/25 by Nika Sanders PA-C cholecalciferol (vitamin D3) 25 mcg PO DAILY meclizine 12.5 mg PO TID PRN nitrofurantoin monohyd/m-cryst 100 mg 100 mg PO Q12H 5 days semaglutide 0.75 mg subcut Tobacco use date assessed: 07/14/25 Dental Screening Dental Screen Date: 07/14/25 Did you have a dental visit in the last 12 months?: No Did you have a dental problem in the last 6 months where you did not have access to dental care?: No Was dental information given to patient?: No HPI f/u weight loss HPI Details 55-year-old female with past medical history of obesity and anxiety last seen 03/2025 coming in for follow up. Patient presents today for follow up on her weight. She has noticed another 5 lb weight loss since her last visit. She is maintaining at this current weight as she is at her goal weight at this time and is planning to use the semaglutide just to maintain her current weight status. 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 Cognitive needs: No Hearing needs: No Vision needs: Yes (Glasses) Questionnaire Thrive Questionnaire Date Thrive assessed: 07/14/25 I am a: Patient What is your living situation today?: I have a steady place to live Within the past 12 months, did the food you bought not last and you didn't have the money to get more?: Never true Within the past 12 months, did you worry whether your food would run out before you got money to buy more?: Never true Do you have trouble paying for medicines?: No Do you have trouble getting transportation to medical appointments?: No Do you have trouble paying your heating and electricity bill?: No Do you have trouble taking care of your child, family member or friend?: No Do you have trouble with day-to-day activities such as bathing, preparing meals, shopping, managing finances, etc.?: No Are you currently unemployed and looking for a job?: No Are you interested in more education?: No Please select the resources that you would like help with: None Currently or been in a relationship where the following occur: No concerns reported THRIVE Score: 0 MARY-7 AMB Questionnaire MARY-7 Date MARY - 7 assessed: 07/14/25 Source: Developed by Drs. Saad Storm, Merary Villalpando, Ruben Curry and colleagues, with an educational ricci from [employer]. Review of Systems Const Denies body aches, Denies chills, Denies fever(s), Denies headache(s) and Denies poor appetite Eyes Reports no additional complaints ENT Denies dizziness and Denies headache(s) Card Denies chest pain, Denies edema, Denies lightheadedness and Denies dyspnea Resp Denies cough and Denies dyspnea GI Denies abdominal pain, Denies nausea and Denies vomiting Reports no additional complaints Musc Denies abnormal gait Skin/Breast Reports system reviewed and no additional complaints, except as documented Neuro Denies abnormal gait, Denies dizziness and Denies headache(s) Psych Reports no additional complaints Physical exam (Primary Care) Vital Signs: Last Vital Signs Pulse 68 07/14/25 14:34 BP 122/74 07/14/25 14:34 Pulse Ox 97 07/14/25 14:34 Oxygen Delivery Method Room Air 07/14/25 14:34 BMI result Body Mass Index 24.4 Tobacco/Smoking Status: Tobacco use Status Tobacco use date assessed 07/14/25 07/14/25 14:38 Patient Tobacco Use Status Former Tobacco user 07/14/25 14:38 e-Cigarette/Vaping Use Never Used 07/14/25 14:38 Thrive Assessment: Date of Thrive Assessment Date Thrive assessed 07/14/25 07/14/25 14:38 Currently or been in a relationship where the following occur: No concerns reported Const General: cooperative, healthy appearing, comfortable and no acute distress Orientation/consciousness: patient oriented x3 HENMT Head: Yes normocephalic Ears: hearing grossly normal bilaterally General nose exam: Normal external nose present Eyes General: appearance normal, both eyes and all related structures Conjunctivae: conjunctivae normal Neck Neck: Yes full ROM and Yes no lymphadenopathy Resp Effort & Inspection: normal respiratory effort Auscultation: clear to auscultation bilaterally, no crackles, no rales, no rhonchi and no wheezes Cardio Rate: regular rate Rhythm: regular rhythm Skin General skin exam: no rashes or lesions noted Neuro General: patient oriented x3 Gait exam (Neuro): Normal gait present Extrem General: Yes normal to inspection, Yes full ROM and No edema Psych Affect: normal affect Attitude: cooperative Insight: Good insight present (Psych) Judgement: Good judgement present (Psych) Coding Level of Care Code Est Pt Level 3 (84364) Diagnoses Stress incontinence N39.3 Obesity (BMI 30.0-34.9) E66.811 Telangiectasia I78.1 Assessment & Plan Assessment & Plan (1) Stress incontinence: Code(s): N39.3 - Stress incontinence (female) (male) Category: Medical Plan: Patient having bouts of stress incontinence we discussed pelvic floor exercises patient agrees to try noninvasive exercise at home. She has been doing pelvic floor exercises and has been finding them beneficial. Did talk about pelvic floor PT as well and she will reach out if she would like to try this but at this time would like to continue with at home pelvic floor exercises. (2) Obesity (BMI 30.0-34.9): Code(s): E66.811 - Obesity, class 1 Category: Medical Plan: Patient is currently on semaglutide 0.75 mg. Healthy diet and regular exercise is encouraged. Discussed with patient she is at a healthy weight and I would advise against losing any more weight at this time. (3) Telangiectasia: Code(s): I78.1 - Nevus, non-neoplastic Category: Medical Plan: For telangiectasia, the patient is informed that laser therapy is a potential treatment option, and a dermatology consultation may be considered for further evaluation. Plan The patient is advised to maintain her current weight to avoid becoming underweight, as she is satisfied with her current weight status. For stress urinary incontinence, the patient is encouraged to continue pelvic floor exercises and consider consulting a pelvic floor physical therapist for more structured guidance. The shingles vaccine is recommended to reduce the severity and duration of potential shingles infection, although it does not completely prevent the disease. This note was constructed using voice recognition software. While every effort has been made to ensure accuracy and contact center manager, still areas may have been included sometimes these areas may affect the content or meeting of the given symptoms. Total time spent caring for the patient today was 20 minutes. This includes time spent before the visit reviewing the chart, time spent during the visit, and time spent after the visit and documentation. Patient was informed and verbally consented to the use of an ambient scribe for clinic note documentation during this visit. Medications: Discontinued nitrofurantoin monohyd/m-cryst 100 mg must administer with a meal/food Discontinued Reason: Patient no longer taking 100 mg PO Q12H 5 days 10 caps 0RF
[2025-07-14 14:34] VITALS: BP 122/74; PULSE 68; O2SAT 97; BMI 24.4
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
--- OUTSIDE RECORDS SUMMARY | 2025-07-14 15:50 | XMS_ITS ---
[facility] Name [facility] Organization Unknown Care Team Organization Name Specialty Phone Email Start Date End [facility] NO PCP Primary Care 12/18/2022 12/18/2022
--- OUTSIDE RECORDS SUMMARY | 2025-07-14 15:50 | XMS_ITS | Clinical Summary ---
Author Organization [facility] Address [address] [place] [address] Care Team Providers Care Medical Van Driver Name Role Phone Pcp, No Primary Care [...] BLUE CROSS OUT OF STATE - PPO [facility] [facility] Care Teams Medical Van Driver Relationship Specialty Start Date End Date Pcp, No PCP - General General Medicine 12/14/22
--- OUTSIDE RECORDS SUMMARY | 2025-07-14 15:50 | XMS_ITS | Clinical Summary ---
Author Organization [facility] Address [address] [place] [address] Care Team Providers Care Peoplesoft Analyst Name Role Phone Unavailable Primary Care Provider [...] (1 of 2) 2022 Influenza Vaccine (#1) 2025 Pneumococcal Vaccine Aged Out No long er eligible based on patient's age to complete this topic RSV Ped < 20 months Aged Out No longe r eligible based on patient's age to complete this topic [facility] Corporate Other 05/21/1980 [employer] [address] [place] [address] Luz Jones Personal/Family Self [address] [place] [id number] [facility] Corporate Other 05/21/[address] AMBIKA KIMBROUGH [address]
== END 2025-07-14 15:25 | disposition home or self-care (01) ==
LOC: HO.HMCH 14:29
DX: N39.3 Stress incontinence (female) (male) (principal); E66.811 Obesity, class 1; I78.1 Nevus, non-neoplastic; Z68.24 Body mass index [BMI] 24.0-24.9, adult